=== PATIENT | male | born 1990 | race Caucasian/White ===

== ENCOUNTER 2017-07-11 20:07 | Inpatient (IN) | payer MEDICAID, OTHER ==
[2017-07-11 20:15] VITALS: O2SAT 96
[2017-07-11 21:25] LABS: BLOOD UREA NITROGEN 11 mg/dl (9-20); CALCIUM 10.1 mg/dL (8.4-10.2); GFR AFRICAN-AMERICAN > 60; GFR NON-AFRICAN AMERICAN > 60
--- NOTE | 2017-07-11 21:31 | ED PDOC ---
HPI: Psych/Substance Abuse Time Seen by Provider: 07/11/17 20:33 Chief Complaint (Nursing): Psychiatric Evaluation History Per: Family Onset/Duration Of Symptoms: Days Suicide/Self Injury Attempted (Context): None Additional Complaint(s): Hx of MDD brought in by family for evaluation, brother states that he's been on haldol, benztropine for one month and has progressive cognitive decline, becoming withdrawn, not getting out of bed. Patient is difficult to interview, does not answer questions. Unclear if patient is suicidal or homicidal at this time. Past Medical History Reviewed: Historical Data, Nursing Documentation Vital Signs: Last Vital Signs Temp 98.0 F 07/11/17 20:10 Pulse 107 H 07/11/17 20:10 Resp 16 07/11/17 20:10 BP 105/72 07/11/17 20:10 Pulse Ox 96 07/11/17 20:10 - Medical History PMH: Anxiety, Depression Denies: Diabetes, Hepatitis, HIV, HTN, Chronic Kidney Disease, Seizures, Sexually Transmitted Disease - Family History Family History: States: Unknown Family Hx - Immunization History Hx Tetanus Toxoid Vaccination: No Hx Influenza Vaccination: No Hx Pneumococcal Vaccination: No - Home Medications Home Medications: Ambulatory Orders Medication Instructions Recorded Benztropine [Cogentin] 1 mg PO BID #60 tab 06/10/17 Haloperidol [Haldol] 5 mg PO BID #60 tab 06/10/17 - Allergies Allergies/Adverse Reactions: Allergies Allergy/AdvReac Type Severity Reaction Status Date / Time No Known Allergies Allergy Verified 05/31/17 12:26 Review of Systems Review Of Systems: ROS cannot be obtained secondary to pt's inabilty to answer questions. Physical Exam - Reviewed Nursing Documentation Reviewed: Yes Vital Signs Reviewed: Yes - Physical Exam Appears: Positive for: Non-toxic, No Acute Distress. Negative for: Well ( Withdrawn) Head Exam: Positive for: ATRAUMATIC, NORMAL INSPECTION, NORMOCEPHALIC Skin: Positive for: Normal Color, Warm, DRY Eye Exam: Positive for: EOMI, Normal appearance, PERRL ENT: Negative for: Normal ENT Inspection (Dry mucus memranes) Neck: Positive for: Normal, Painless ROM Cardiovascular/Chest: Positive for: Regular Rate, Rhythm Respiratory: Positive for: CNT, Normal Breath Sounds Gastrointestinal/Abdominal: Positive for: Normal Exam, Soft Back: Positive for: Normal Inspection Extremity: Positive for: Normal ROM Neurologic/Psych: Positive for: Alert, Oriented, Mood/Affect (Withdrawn, depressed appearing). Negative for: Motor/Sensory Deficits - Laboratory Results Result Diagrams: 07/12/17 08:34 07/11/17 21:04 - ECG O2 Sat by Pulse Oximetry: 96 Medical Decision Making Medical Decision Making: Hx of MDD presenting with withdrawn, anxious symptoms, to be evaluated by crisis. Patient also has dry mucus membranes with tachycardia- likely dehydrated. 2300 Patient accepted by crisis, medically cleared for admission. Disposition - Clinical Impression Clinical Impression: Manic bipolar I disorder, Schizophrenia - Disposition Disposition Time: 23:00 Condition: FAIR
[2017-07-11 21:34] LABS: BASO # 0.1 K/uL (0.0-0.2); BASO % 0.6 % (0.0-2.0); CK-MB 0.78 ng/mL (0.0-3.38); EOS % 0.3 % (0.0-4.0); LYMPH # 1.3 K/uL (1.0-4.3); LYMPH % 7.9 % (20.0-40.0); MEAN CELL VOLUME 88.1 fl (80.0-94.0); MEAN CORPUSCULAR HEMOGLOBIN 29.1 pg (27.0-31.0); MEAN CORPUSCULAR HGB CONC 33.1 g/dL (33.0-37.0); MEAN PLATELET VOLUME 8.9 fl (7.2-11.7); MONO # 1.2 K/uL (0.0-0.8); MONO % 7.2 % (0.0-10.0); NEUT # 13.8 K/uL (1.8-7.0); NRBC % 0.1 % (0.0-0.0); PLATELET COUNT 212 K/uL (130-400); RBC 5.13 Mil/uL (4.40-5.90); RED CELL DISTRIBUTION WIDTH 13.8 % (11.5-14.5); WHITE BLOOD COUNT 16.4 K/uL (4.8-10.8)
[2017-07-11 22:17] LABS: BENZODIAZEPINES, UR NEGATIVE (NEGATIVE); SQUAMOUS EPITHIAL < 1 /hpf (0-5); URINE BACTERIA RARE (<OCC); URINE BILIRUBIN NEGATIVE (NEGATIVE); URINE BLOOD NEGATIVE (NEGATIVE); URINE CALCIUM OXALATE CRYSTALS OCC /hpf (<OCC); URINE CLARITY SLIGHTY-CLOUDY (Clear); URINE COLOR YELLOW (YELLOW); URINE GLUCOSE (UA) NEG (Normal); URINE LEUKOCYTE ESTERASE TRACE Leu/uL (Negative); URINE PROTEIN NEGATIVE (NEGATIVE)
[2017-07-11 22:18] LABS: BARBITURATES, UR NEGATIVE (NEGATIVE); OPIATES, UR NEGATIVE (NEGATIVE); PHENCYCLIDINE, UR NEGATIVE (NEGATIVE)
[2017-07-11 22:30] LABS: BANDS 4 % (0-2); LYMPHOCYTE 8 % (20-50); MONOCYTE 8 % (0-10); NEUTROPHIL 80 % (42-75); PLATELET ESTIMATE NORMAL (NORMAL); TOTAL CELLS COUNTED 100
[2017-07-11 22:32] LABS: HYPOCHROMIC SLIGHT
[2017-07-11] MEDS ORDERED: DiphenhydrAMINE 50 mg/ml Inj IM STA ×2 (23:26→23:31)
[2017-07-11] MEDS ORDERED: Sodium Chloride 0.9% 1,000 ML IV STA (23:27)
[2017-07-11] MEDS ORDERED: DiphenhydrAMINE 50 mg/ml Inj IVP STA (23:27)
[2017-07-11] MEDS ORDERED: DiphenhydrAMINE 50 mg/ml Inj ONE (23:59)
[2017-07-12] MEDS ORDERED: Magnesium Hydroxide Susp 30 ml UD PO PRN (01:21)
[2017-07-12] MEDS ORDERED: Alum-Mag Hydrox-Simethicone Susp (30 mL) PO PRN (01:21)
[2017-07-12] MEDS ORDERED: DiphenhydrAMINE 50 mg/ml Inj IM PRN (01:21)
--- NOTE | 2017-07-12 01:35 | PCM.BM ---
<AmbrocioCarli Jaison - Last Filed: 07/12/17 01:33> Treatment Plan Problems - Problems identified on initial assessmt Altered Thought Process Date Initiated: 07/12/17 Time Initiated: 01:33 Assessment reference: NA Delusions Date Initiated: 07/12/17 Time Initiated: 01:34 Assessment reference: NA Altered Sleep Patterns Date Initiated: 07/12/17 Time Initiated: 01:34 Assessment reference: NA Treatment assets and liabiliti Patient Assests: cooperative, ADL independent, good support system, negotiates basic needs Patient Liabilities: substance abuse - Milieu Protocol Maintain good personal hygiene: daily Encourage regular showers, every shift Remind patient to perform daily oral care, every shift Assist patient to perform ADL's Maintain personal safety: every shift Educate patient to report safety concerns to staff, every shift Monitor environment for contraband/sharps Medication safety: Monitor for expected outcome, potential side effects: every shift, Assess barriers to learning: every shift, Assess readiness for medication education: every shift <DavionIsrael Mark - Last Filed: 07/14/17 19:48> Family Contact Family involvement: Family/SO is involved Family contact: Patient agrees to contact, Family has been contacted by patient , Telephone contact initiated by staff Family contact name: Thee (father) [phone] Family contacted how many times per week?: 3 Family contact comment: Sc[employer] K[employer] met with pt's father, Thee [phone], to provide psychoeducation and answer questions regarding pt's treatment. Pt's father reported that pt is about 60 percent off of his baseline. Pt's father reported that pt attempted suicide about 2 years ago by attempting to hang himself. - Goals for Treatment Patient goals for treatment: Pt unable to articulate goals at this time. Patient's family/SO goals for treatment: Pt's father found it difficult to come up with any specific goals. Discharge/Continuing Care - Education Needs Education Needs: Family Medication, Family Diagnosis/Disease Process, Family Coping Skills, Family Aftercare Safety Plan, Patient Medication, Patient Diagnosis/Disease Process, Patient Coping Skills, Patient Personal Hygiene/ Grooming, Patient Aftercare Safety Plan - Discharge Discharge Criteria: Tolerates medication w/o severe side effects, Free of Suicidal thoughts, Free of paranoid thoughts, Free of agitation, Normal sleep pattern, Reduction of target symptoms Discharge to:: Home, With Family - Treatment Team Participation Discussed with Family/SO: Yes Was Patient/Family/SO present at Treatment Team Meeting: Yes <Layne Felton - Last Filed: 07/15/17 16:14> Discharge/Continuing Care - Treatment Team Participation Patient/Family/SO Statement: 07/15/17 16:14 Patient was invited to tx team this morning and was able to briefly discuss progress on 3NP. Pt. continues to present as internally preoccupied with some thought blocking. Pt. continues to report some stiffness secondary to medications taken prior to current admission. Pt. reports improvement in sleep since admission (approx. 7 hours/night). Pt. reports improvement in AH since admission and denied experiencing AH/VH today. Pt. denied cannabis abuse as a problem, reporting only using cannabis once prior to admission. Pt. isolative and withdrawn on 3NP. Pt. agreeable to family contact and medication management recommended by attending. <Francisco Vazquez - Last Filed: 07/19/17 11:24> - Diagnosis (1) Depression Status: Acute Interventions: pharmacotherapy, psychotherapy 07/19/17 11:23
[2017-07-12 08:38] LABS: HEMOGLOBIN 15.1 g/dL (12.0-18.0); MEAN CELL VOLUME 87.5 fl (80.0-94.0); MEAN CORPUSCULAR HGB CONC 33.2 g/dL (33.0-37.0); RBC 5.22 Mil/uL (4.40-5.90); RED CELL DISTRIBUTION WIDTH 13.9 % (11.5-14.5); WHITE BLOOD COUNT 13.3 K/uL (4.8-10.8)
--- NOTE | 2017-07-12 09:29 | RAD ---
HISTORY: tachycardia, dry COMPARISON: No prior. FINDINGS: LUNGS: No active pulmonary disease. PLEURA: No significant pleural effusion identified, no pneumothorax apparent. CARDIOVASCULAR: Normal. OSSEOUS STRUCTURES: No significant abnormalities. VISUALIZED UPPER ABDOMEN: Normal. OTHER FINDINGS: None. IMPRESSION: No active disease.
[2017-07-12 09:31] LABS: T4 6.31 ug/dl (5.5-11.0)
--- NOTE | 2017-07-12 10:21 | CARD ---
APPROVED REPORT EKG Measurement Heart [id number] <Conclusion> Sinus tachycardia Possible right atrial enlargement Borderline ECG
[2017-07-12] MEDS: Risperidone M TAB 2 MG PO SCH (16:23)
[2017-07-13] MEDS: Risperidone M TAB 2 MG PO SCH ×2 (09:00→16:38)
--- NOTE | 2017-07-13 15:05 | PCM.PYCHPN ---
Psychiatric Progress Note - Psychiatric Progress Note Patient seen today, length of contact: chart reviewed case discussed with team evaluated Patient Chief Complaint: was decreased sleeping, has smoked thc, feeling paranoid, staff report pt is isolative at times times, stares at times, reportedly adherent with tx. denies side effects of medications Problems Identified/Issues Discussed: alteration in mood alteration in cognition alteration in coping: thc use Medical Problems: per chart Diagnostic Results: per psychiatry per medicine per nursing per social work per chart DSM 5 Symptoms Update: improving sleep, psychosis somewhat improving Medication Change: No Medical Record Reviewed: Yes Consults ordered or reviewed: pt seen by hospitalist Mental Status Examination - Cognitive Function Orientation: Person, Place, Situation Attention: Poor Concentration: Poor Association: WNL Decription of patient's judgement and insights: impaired - Mood Mood: Depressed, Anxious - Affect Affect: Constricted, Depressed - Formal Thought Process Formal Thought Process: Paranoia - Homicidal Ideation Homicidal Ideation: No Goal/Treatment Plan - Goal/Treatment Plan Need for Continued Stay: Discharge may exacerbated symptoms Progress Toward Problem(s) and Goals/Treatment Plan: inpt milieu adjust meds per status vital signs and clinical observation per protocol and per status discharge planning in progress Estimated Date of D/C: 07/18/17 - Smoking Cessation Smoking Cessation Initiated: No Reason for not providing: pt defers
[2017-07-14] MEDS: Risperidone M TAB 2 MG PO SCH ×2 (09:09→17:32)
--- NOTE | 2017-07-14 11:50 | CP.PCM.CON ---
History of Present Illness - History of Present Illness History of Present Illness: CC: Depression This is a 27 year old male with past medical history of anxiety and depression, who presented to the ED for psychiatric evaluation and was subsequently admitted to the inpatient psychatric unit. The patient is withdrawn and does not readily respond to questioning. He denies any medical problems however and states that he has not been ill recently. He states that physically he feels ok. Patient denies chest pain, shortness of breath, fevers, chills, nausea, vomiting, diarrhea, headache. All of the patient's questions were answered at the bedside. Review of Systems - Review of Systems Review of Systems: A 12 point review of systems was conducted and found to be negative other than what was mentioned in the HPI. Past Patient History - Infectious Disease Hx of Infectious Diseases: None - Past Medical History & Family History Past Medical History?: No Past Family History: Reviewed and not pertinent - Past Social History Smoking Status: Never Smoked Drugs: Cannabis - CARDIAC Hx Hypertension: No - PULMONARY Hx Respiratory Disorders: No - NEUROLOGICAL Hx Seizures: No - HEENT Hx HEENT Problems: No - RENAL Hx Chronic Kidney Disease: No - ENDOCRINE/METABOLIC Hx Endocrine Disorders: No - HEMATOLOGICAL/ONCOLOGICAL Hx Human Immunodeficiency Virus (HIV): No - INTEGUMENTARY Hx Dermatological Problems: No - MUSCULOSKELETAL/RHEUMATOLOGICAL Hx Musculoskeletal Disorders: No - GASTROINTESTINAL Hx Gastrointestinal Disorders: No - GENITOURINARY/GYNECOLOGICAL Hx Sexually Transmitted Disorders: No - PSYCHIATRIC Hx Anxiety: Yes Hx Depression: Yes - SURGICAL HISTORY Hx Surgeries: No - ANESTHESIA Hx Anesthesia: No Meds Allergies/Adverse Reactions: Allergies Allergy/AdvReac Type Severity Reaction Status Date / Time No Known Allergies Allergy Verified 05/31/17 12:26 - Medications Medications: Current Medications Acetaminophen (Tylenol 325mg Tab) 650 mg PO Q4 PRN PRN Reason: Pain, moderate (4-7) Al Hydrox/Mg Hydrox/Simethicone (Maalox Plus 30 Ml) 30 ml PO Q4 PRN PRN Reason: Dyspepsia Benztropine Mesylate (Cogentin) 0.5 mg PO BID [facility]ARG[facility]ITA Last Admin: 07/14/17 09:09 Dose: 0.5 mg Diphenhydramine HCl (Benadryl) 50 mg IM Q6 PRN PRN Reason: Extrapyramidal S/S Unable PO Diphenhydramine HCl (Benadryl) 50 mg PO HS PRN PRN Reason: Sleep Fluvoxamine Maleate (Luvox) 50 mg PO DAILY [facility] Last Admin: 07/14/17 09:09 Dose: 50 mg Haloperidol (Haldol) 5 mg PO Q4 PRN PRN Reason: Agitation Haloperidol Lactate (Haldol) 5 mg IM Q4 PRN PRN Reason: Agitation, Unable to Take PO Lorazepam (Ativan) 2 mg IM Q4 PRN PRN Reason: Anxiety/Agitation,Unable PO Lorazepam (Ativan) 1 mg PO Q4 PRN PRN Reason: Anxiety/Agitation Last Admin: 07/12/17 03:02 Dose: 1 mg Magnesium Hydroxide (Milk Of Magnesia) 30 ml PO HS PRN PRN Reason: Constipation Mirtazapine (Remeron) 7.5 mg PO HS [facility] Last Admin: 07/13/17 21:13 Dose: 7.5 mg Risperidone (Risperdal M-Tab) 2 mg PO BID [facility] Last Admin: 07/14/17 09:09 Dose: 2 mg Physical Exam - Additional Findings Additional findings: Physical exam: Constitutional- cooperative, awake, alert Head- NCAT, PERRL Eye- PERRL, EOMI ENT- dry mucus membranes, otherwise normal exam Neck- normal inspection, supple, no JVD Respiratory- CTAB, no wheezes rales rhonchi Cardiovascular- RRR, +S1, +S2 no MRG GI/Abdominal- normal bowel sounds, soft, no mass, no hsm Skin- warm, dry Extremities Exam- normal capillary refill, normal inspection Neurological Exam- alert, awake, oriented Psych- depressed mood, flat affect. Results - Vital Signs Recent Vital Signs: Last Vital Signs Temp 97.1 F L 07/13/17 16:40 Pulse 95 H 07/13/17 16:40 Resp 18 07/13/17 16:40 BP 122/79 07/13/17 16:40 Pulse Ox 96 07/13/17 05:52 - Labs Result Diagrams: 07/12/17 08:34 07/11/17 21:04 Assessment & Plan - Assessment and Plan (Free Text) Plan: ASSESSMENT/PLAN 1) Dyslipidemia - DASH diet recommended - Will need close outpatient f/u 2) Cannabis abuse - Management as per psychiatry 3) Clinical dehydration - Encourage po fluid intake 4) Manic bipolar 1 disorder - acute - management as per psych 5) Schizophrenia - acute - management as per psych
--- NOTE | 2017-07-14 16:12 | PCM.PYCHPN ---
Psychiatric Progress Note - Psychiatric Progress Note Patient seen today, length of contact: chart reviewed case discussed with team evaluated Patient Chief Complaint: was decreased sleeping, has smoked thc, feeling paranoid, staff report pt is isolative at times times, stares at times, reportedly adherent with tx. denies side effects of medications Problems Identified/Issues Discussed: alteration in mood alteration in cognition alteration in coping: thc use Medical Problems: per chart Diagnostic Results: per psychiatry per medicine per nursing per social work per chart DSM 5 Symptoms Update: improving psychosis mood less isolation Medication Change: No Medical Record Reviewed: Yes Consults ordered or reviewed: pt seen by hospitalist Mental Status Examination - Cognitive Function Orientation: Person, Place, Situation Attention: WNL Concentration: WNL Association: WNL Decription of patient's judgement and insights: impaired - Mood Mood: Depressed, Anxious - Affect Affect: Constricted, Depressed - Formal Thought Process Formal Thought Process: Paranoia - Homicidal Ideation Homicidal Ideation: No Goal/Treatment Plan - Goal/Treatment Plan Need for Continued Stay: Discharge may exacerbated symptoms Progress Toward Problem(s) and Goals/Treatment Plan: inpt milieu adjust meds per status vital signs and clinical observation per protocol and per status discharge planning in progress Estimated Date of D/C: 07/18/17 - Smoking Cessation Smoking Cessation Initiated: No Reason for not providing: pt defers
[2017-07-15] MEDS: Risperidone M TAB 2 MG PO SCH ×2 (09:12→17:42)
--- NOTE | 2017-07-15 14:57 | PCM.PYCHPN ---
Psychiatric Progress Note - Psychiatric Progress Note Patient seen today, length of contact: chart reviewed case discussed with team evaluated Patient Chief Complaint: I am sleeping better Problems Identified/Issues Discussed: pt evaluated with treatment team, continues to present with flat affect and thought blocking, appears internally preoccupied. 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 Medication Change: Yes (increase remeron) Medical Record Reviewed: Yes Mental Status Examination - Cognitive Function Orientation: Person, Place, Situation Attention: WNL Concentration: WNL Association: WNL - Mood Mood: Depressed, Anxious - Affect Affect: Constricted, Depressed - Formal Thought Process Formal Thought Process: Paranoia Psychotic Thoughts and Behaviors: thought blocking, denied command hallucinations - Suicidal Ideation Suicidal Ideation: No - Homicidal Ideation Homicidal Ideation: No Goal/Treatment Plan - Goal/Treatment Plan Need for Continued Stay: Discharge may exacerbated symptoms Progress Toward Problem(s) and Goals/Treatment Plan: risperidone 2mg bid cogentin 0.5mg bid discontinue luvox, increase remeron 15mg qhs Estimated Date of D/C: 07/18/17
[2017-07-16] MEDS: Risperidone M TAB 2 MG PO SCH ×2 (10:12→17:43)
--- NOTE | 2017-07-16 14:33 | PCM.PYCHPN ---
Psychiatric Progress Note - Psychiatric Progress Note Patient seen today, length of contact: chart reviewed case discussed with team evaluated Patient Chief Complaint: I am better Problems Identified/Issues Discussed: pt evaluated less stiff, reported better movement, pt speech more productive, however continues to be guarded when asked about possible triggers for depression, pt also has limited insight towards cannabis use, motivational therapy provided and discussed with pt effect of cannabis on current mental status pt continues to be with flat affect, reported improved sleep and appetite , denied any current suicidal or homicidal idetions , no reported side effects of medications Medical Problems: multiple hospitalizations DSM 5 Symptoms Update: major depression with psychotic features cannabis use disorder Medication Change: No Medical Record Reviewed: Yes Mental Status Examination - Cognitive Function Orientation: Person, Place, Situation Attention: Poor Concentration: Poor Association: WNL Fund of Knowledge: Poor - Mood Mood: Depressed, Anxious - Affect Affect: Constricted, Depressed - Formal Thought Process Formal Thought Process: Paranoia Psychotic Thoughts and Behaviors: thought blocking, denied command hallucinations - Suicidal Ideation Suicidal Ideation: No - Homicidal Ideation Homicidal Ideation: No Goal/Treatment Plan - Goal/Treatment Plan Need for Continued Stay: Discharge may exacerbated symptoms Progress Toward Problem(s) and Goals/Treatment Plan: risperidone 2mg bid cogentin 0.5mg bid remeron 15mg qhs Estimated Date of D/C: 07/23/17
[2017-07-17] MEDS: Risperidone M TAB 2 MG PO SCH (08:52)
--- NOTE | 2017-07-17 15:17 | PCM.PYCHPN ---
Psychiatric Progress Note - Psychiatric Progress Note Patient seen today, length of contact: chart reviewed case discussed with team evaluated Patient Chief Complaint: I am less paranoid and I am not hearing voices Problems Identified/Issues Discussed: pt evaluated , treatment plan discussed with father upon pt consent , pt speech more productive, less guarded , reported better mood , discussed with pt possible triggers for depression, pt stated it started during school years feeling overwhelmed by school work , unable to identify any triggers for current episode CBT provided and discussed with pt reducing dose of risperidone pt denied any current suicidal or homicidal idetions , no reported side effects of medications Medical Problems: multiple hospitalizations DSM 5 Symptoms Update: major depression with psychotic features Medication Change: Yes (decrease risperidone) Medical Record Reviewed: Yes Mental Status Examination - Cognitive Function Orientation: Person, Place, Situation Attention: Poor Concentration: Poor Association: WNL Fund of Knowledge: Poor - Mood Mood: Depressed, Anxious - Affect Affect: Constricted, Depressed - Formal Thought Process Formal Thought Process: Circumstantial Psychotic Thoughts and Behaviors: thought blocking, denied command hallucinations - Suicidal Ideation Suicidal Ideation: No - Homicidal Ideation Homicidal Ideation: No Goal/Treatment Plan - Goal/Treatment Plan Need for Continued Stay: Discharge may exacerbated symptoms Progress Toward Problem(s) and Goals/Treatment Plan: risperidone 3mg bid cogentin 0.5mg qhs, remeron 15mg qhs Estimated Date of D/C: 07/23/17
[2017-07-17] MEDS ORDERED: Risperidone M tab 1 MG PO SCH (22:00)
[2017-07-17] MEDS ORDERED: Risperidone M TAB 2 MG PO SCH (22:00)
--- NOTE | 2017-07-18 14:53 | PCM.PYCHPN ---
Psychiatric Progress Note - Psychiatric Progress Note Patient seen today, length of contact: chart reviewed case discussed with team evaluated Patient Chief Complaint: I am feeling better today Problems Identified/Issues Discussed: pt evaluated , less flat, more interactive during conversation and more visible on the unit , interacting more with other patients, pt however continues to be guarded when asked about his suicidal attempt two years ago, continues to minimize his symptoms of depression relating them to boredom and poor performance in school pt less paranoid denied any current perceptual disturbances, denied suicidal or homicidal ideations Medical Problems: multiple hospitalizations DSM 5 Symptoms Update: major depression with psychosis cannabis abuse Medication Change: Yes (decrease risperidone) Medical Record Reviewed: Yes Mental Status Examination - Cognitive Function Orientation: Person, Place, Situation Attention: Poor Concentration: Poor Association: WNL Fund of Knowledge: Poor - Mood Mood: Depressed, Anxious - Affect Affect: Constricted, Depressed - Formal Thought Process Formal Thought Process: Circumstantial Psychotic Thoughts and Behaviors: thought blocking, denied command hallucinations - Suicidal Ideation Suicidal Ideation: No - Homicidal Ideation Homicidal Ideation: No Goal/Treatment Plan - Goal/Treatment Plan Need for Continued Stay: Discharge may exacerbated symptoms Progress Toward Problem(s) and Goals/Treatment Plan: risperidone 2.5mg qhs discontinue cogentin 0.5mg qhs, remeron 15mg qhs monitor for psychopharmacological effects and sideeffect profile supportive therapy Estimated Date of D/C: 07/23/17
[2017-07-18] MEDS ORDERED: Risperidone M tab 0.5MG PO SCH (22:00)
[2017-07-18] MEDS ORDERED: Risperidone M TAB 2 MG PO SCH (22:00)
[2017-07-19 09:24] VITALS: BP 123/76; PULSE 110; RESP 20; TEMP 97.5
--- NOTE | 2017-07-19 13:55 | PCM.PYCHDC ---
Mental Status Examination - Mental Status Examination Orientation: Person, Place, Situation Memory: Intact Mood: Neutral Affect: Broad Speech: Appropriate Attention: WNL Concentration: WNL Association: WNL Fund of Knowledge: WNL Formal Thought Process: Circumstantial Description of patient's judgement and insight: partial insight fair judgment Psychotic Thoughts and Behaviors: pt denied any current psychotic symptoms, non elicited Suicidal Ideation: No Current Homicidal Ideation?: No Discharge Summary - Discharge Note Reason for Hospitalization: pt requested help pt with previous diagnosis of schizophrenia recently discharged from [facility] pt since then has been unable to sleep with no more than one hour sleep per day, pt also has been having stiffness and EPS symptoms, reported feeling hopeless and helpless with passive suicidal ideations , reported he continues to obsess about lack of sleep, presenting with anhedonia low energy, poor appetite and neglect of personal hygiene Consultations:: List each consultation separately and include: 1. Reason for request. 2. Findings. 3. Follow-up Summary of Hospital Course include:: 1. Description of specific treatment plan utilized for patients during their course of treatmen. 2. Summarize the time- course for resolution of acute symptoms and/or regressed behaviors. 3. Describe issues identified and worked on during hospitalization. 4. Describe medication utilized. 5. Describe medical problems identified and treated. 6. Reassessment of suicide risk Summary of Hospital Course: pt on admission was guarded paranoid, internally preoccupied with thought blocking , flat affect and parkinsonion posture, oral TD, poor sleep and appetite pt was started on remeron, increased to 15mg qhs haldol was discontinued pt was started on risperidone it was down titrated to 2mg qhs , pt gradually showed clearing off of the paranoid delusions, became more interactive, improved sleep and appetite , no reported side effects of medications on discharge mental status was stable, denied suicidal or homicidal ideations denied perceptual disturbances follow up arranged BY [facility] - Diagnosis (1) Depression Current Visit: No Status: Acute - Final Diagnosis (DSM 5) Condition upon Discharge: FAIR DSM 5: major depression recurrent severe with psychotic features cannabis abuse mild Disposition: HOME/ ROUTINE Follow-up Treatment Plan: risperidone 2.5mg qhs discontinue cogentin 0.5mg qhs, remeron 15mg qhs monitor for psychopharmacological effects and sideeffect profile supportive therapy Prescriptions/Medication Reconciliation: Mirtazapine [Remeron] 15 mg PO HS 30 Days #30 tab risperiDONE [RisperDAL Tab] 2 mg PO HS 30 Days #30 tab - Antipsychotic Medications Pt discharged on 2 or more routine antipsychotic medications: No
== END 2017-07-19 16:31 | disposition home or self-care (01) | DRG 430 ==
LOC: H.ER 20:07 → H.ERHOLD 23:26 → H.PSYCH 07-12 01:15
PROVIDERS: ADMIT Psychiatry & Neurology Psychiatry; ATTEND Psychiatry & Neurology Psychiatry
PROC: GZHZZZZ Group Psychotherapy (ICD-10-PCS; principal; 2017-07-11)
PROC: GZ58ZZZ Individual Psychotherapy, Cognitive-Behavioral (ICD-10-PCS; 2017-07-11)
DX: F33.3 Major depressive disorder, recurrent, severe with psychotic symptoms (principal); F12.150 Cannabis abuse with psychotic disorder with delusions; E86.0 Dehydration; F41.9 Anxiety disorder, unspecified; E78.5 Hyperlipidemia, unspecified